=== PATIENT | female | born 1975 | race Caucasian/White ===

== ENCOUNTER 2021-03-21 18:15 | Emergency (ER) | payer OTHER ==
[2021-03-21] MEDS ORDERED: FLAGYL500 MG PO (19:18)
[2021-03-21 21:00] LABS: COLOR,URINE YELLOW (YELLOW)
[2021-03-21 21:01] LABS: CLARITY,URINE HAZY (CLEAR); KETONES,URINE NEGATIVE (NEGATIVE); LEUKOCYTE ESTERASE ,URINE SMALL (NEGATIVE); NITRITE,URINE NEGATIVE (NEGATIVE); URINE UROBILINOGEN 0.2 mg/dL (0.2 - 1)
[2021-03-21 21:02] LABS: PROTEIN,URINE DIPSTICK TRACE (NEGATIVE)
[2021-03-21 22:03] LABS: EPITHELIAL CELLS,URINE MANY /LPF; RBC,URINE >50 /HPF (0-5)
== END 2021-03-21 19:15 | disposition home or self-care (01) ==
LOC: ER 19:05
DX: N94.10 Unspecified dyspareunia (principal); E05.90 Thyrotoxicosis, unspecified without thyrotoxic crisis or storm; G35 Multiple sclerosis
CPT/HCPCS: 81001; 99283